=== PATIENT | female | born 1995 | race Caucasian/White ===

== ENCOUNTER 2017-01-27 14:53 | Emergency (ER) | payer OTHER ==
[~2017-01-27] VITALS: Ht 152.4 cm; Wt 61.5 kg
[2017-01-27 15:01] VITALS: Ht 152.4 cm; Wt 61.5 kg
[2017-01-27] MEDS ORDERED: SOD CHLORIDE 0.9% 1,000 ML IV STA (15:44)
[2017-01-27] MEDS ORDERED: METOCLOPRAMIDE 10 MG INJ IV STA (15:44)
[2017-01-27] MEDS ORDERED: FAMOTIDINE 20 MG INJ IV STA (15:44)
[2017-01-27 16:21] LABS: ADD SCAN DIFF NO
[2017-01-27 16:22] LABS: BASOPHILS % 0.3 % (0.0-2.0); EOSINOPHILS % 0.2 % (0.0-7.0); HEMATOCRIT 36.7 % (37.0-47.0); HEMOGLOBIN 12.7 g/dl (12.0-16.0); LYMPHOCYTES # 2.2 10^3/ul (0.8-2.9); LYMPHOCYTES % 18.4 % (18.0-55.0); MEAN CORPUSCULAR HEMOGLOBIN 30.5 pg (29.0-33.0); MEAN CORPUSCULAR HGB CONC 34.6 g/dl (32.0-37.0); MEAN PLATELET VOLUME 9.7 fl (7.4-10.4); MONOCYTE # 0.6 10^3/ul (0.3-0.9); NEUTROPHIL # 9.2 10^3/ul (1.6-7.5); NEUTROPHILS % 75.8 % (30.0-74.0); PLATELET COUNT 241 10^3/UL (140-415); RED BLOOD COUNT 4.17 10^6/ul (4.20-5.40); RED CELL DISTRIBUTION WIDTH 12.8 % (11.5-14.5); WHITE BLOOD COUNT 12.1 10^3/ul (4.8-10.8)
[2017-01-27 16:30] LABS: ADD UMIC YES; URINE BILIRUBIN (Dip) NEGATIVE (NEGATIVE); URINE BLOOD (Dip) NEGATIVE (NEGATIVE); URINE COLOR LT. YELLOW (YELLOW); URINE GLUCOSE (Dip) NEGATIVE (NEGATIVE); URINE KETONES (Dip) NEGATIVE (NEGATIVE); URINE LEUKOCYTE ESTERASE (Dip) NEGATIVE (NEGATIVE); URINE NITRITE (Dip) NEGATIVE (NEGATIVE); URINE TOTAL PROTEIN (Dip) 1+ (NEGATIVE); URINE UROBILINOGEN (Dip) 0.2 E.U./dL (0.1-1.0)
[2017-01-27 16:35] LABS: ALBUMIN 4.6 g/dl (3.3-4.9); ALBUMIN/GLOBULIN RATIO 1.39; BILIRUBIN,INDIRECT 0.5 mg/dl (0-1.1); BILIRUBIN,TOTAL 0.5 mg/dl (0.2-1.3); CALCIUM 9.5 mg/dl (8.4-10.2); CREATININE 0.47 mg/dl (0.44-1.00); POTASSIUM 3.7 mmol/L (3.5-5.1); TOTAL PROTEIN 7.9 g/dl (6.1-8.1)
[2017-01-27 17:14] LABS: SQUAMOUS EPITHELIAL CELL,UR MODERATE; URINE RBCS NONE SEEN /HPF (0)
[2017-01-27] MEDS ORDERED: METO10TA92 PO (18:00)
[2017-01-27] MEDS ORDERED: FAMO40TA52 PO (18:00)
--- NOTE | 2017-01-27 18:03 | ERD ---
ER Documentation Chief Complaint Date/Time DATE: 01/27/17 TIME: 18:02 Chief Complaint VOMITED BLOOD TWICE TODAY,7 WEEKS .DENIES PAIN HPI This 89-year-old female complains of vomiting over the last day. She had some slight bright red blood in the vomitus without clots or gross blood. She denies any diarrhea, fevers, urinary complaints. She is approximately 7 weeks by dates. She denies any foreign travel or sick contacts. ROS All systems reviewed and are negative except as per history of present illness. Medications Home Meds Active Scripts Metoclopramide* (Reglan*) 10 Mg Tablet, 10 MG PO Q6 Y for NAUSEA AND/OR VOMITING , #20 TAB Prov:CARMEN KHALIL MD 01/27/17 Famotidine* (Famotidine*) 40 Mg Tablet, 40 MG PO HS, #30 TAB Prov:CARMEN KHALIL MD 01/27/17 Physical Exam Vitals Vital Signs Date Time Temp Pulse Resp B/P Pulse Ox O2 Delivery O2 Flow Rate FiO2 01/27/17 15:01 98.4 87 18 105/65 98 Physical Exam Const: [] Alert, not appearing per Head: Atraumatic Eyes: Normal Conjunctiva ENT: Normal External Ears, Nose and Mouth. Neck: Full range of motion..~ No meningismus. Resp: Clear to auscultation bilaterally Cardio: Regular rate and rhythm, no murmurs Abd: Soft, minimal epigastric tenderness. No tenderness at McBurney's point no Cano sign., non distended. Normal bowel sounds Skin: No petechiae or rashes Back: No midline or flank tenderness Ext: No cyanosis, or edema Neur: Awake and alert Psych: Normal Mood and Affect Result Diagram: 01/27/17 1606 01/27/17 1606 Results 24 hrs Laboratory Tests Test 01/27/17 15:55 01/27/17 16:06 Urine Color LT. YELLOW Urine Clarity CLEAR Urine pH 8.0 Urine Specific Widen 1.015 Urine Ketones NEGATIVE Urine Nitrite NEGATIVE Urine Bilirubin NEGATIVE Urine Urobilinogen 0.2 E.U./dL Urine Leukocyte Esterase NEGATIVE Urine Microscopic RBC NONE SEEN/HPF Urine Microscopic WBC 0-2/HPF Urine Squamous Epithelial Cells MODERATE Urine Amorphous Urates MANY Urine Hemoglobin NEGATIVE Urine Glucose NEGATIVE% Urine Total Protein 1+ White Blood Count 12.110^3/ul Red Blood Count 4.1710^6/ul Hemoglobin 12.7g/dl Hematocrit 36.7% Mean Corpuscular Volume 88.0fl Mean Corpuscular Hemoglobin 30.5pg Mean Corpuscular Hemoglobin Concent 34.6g/dl Red Cell Distribution Width 12.8% Platelet Count 86117^3/UL Mean Platelet Volume 9.7fl Neutrophils % 75.8% Lymphocytes % 18.4% Monocytes % 5.0% Eosinophils % 0.2% Basophils % 0.3% Nucleated Red Blood Cells % 0.0/100WBC Neutrophils # 9.210^3/ul Lymphocytes # 2.210^3/ul Monocytes # 0.610^3/ul Eosinophils # 0.010^3/ul Basophils # 0.010^3/ul Nucleated Red Blood Cells # 0.010^3/ul Sodium Level 136mmol/L Potassium Level 3.7mmol/L Chloride Level 103mmol/L Carbon Dioxide Level 22mmol/L Anion Gap 15 Blood Urea Nitrogen 6mg/dl Creatinine 0.47mg/dl Glucose Level 87mg/dl Calcium Level 9.5mg/dl Total Bilirubin 0.5mg/dl Direct Bilirubin 0.00mg/dl Indirect Bilirubin 0.5mg/dl Aspartate Amino Transf (AST/SGOT) 26IU/L Alanine Aminotransferase (ALT/SGPT) 41IU/L Alkaline Phosphatase 81IU/L Total Protein 7.9g/dl Albumin 4.6g/dl Globulin 3.30g/dl Albumin/Globulin Ratio 1.39 Lipase 46U/L Current Medications Medications (Trade) Dose Ordered Sig/Padmini Route PRN Reason Start Time Stop Time Status Last Admin Dose Admin Sodium Chloride (NS) 1,000 ml @ 1,000 mls/hr Q1H STAT IV 01/27/17 15:44 01/27/17 16:43 DC 01/27/17 16:12 Metoclopramide HCl (Reglan) 10 mg ONCE STAT IV 01/27/17 15:44 01/27/17 15:46 DC 01/27/17 16:12 Famotidine (Pepcid Iv) 20 mg ONCE STAT IV 01/27/17 15:44 01/27/17 15:46 DC 01/27/17 16:13 Procedures/MDM CBC shows a white blood count 12.1, otherwise normal. CMP and lipase is normal. Urine is negative for leukocytes, blood, glucose. HCG is positive. Peripheral ultrasound shows a week intrauterine without acute abnormalities. Patient felt better after 1 L normal saline IV, Reglan 10 mg IV and Pepcid 20 mg IV. Patient presents with vomiting with possibly some history of bright red vomitus in the with blood no active vomiting. There is no signs or symptoms of anemia, active bleeding. She may have gastritis and will be treated with Reglan and Pepcid at home and close observation. She should return for vomitus by treatment, worsening blood, pain, new or worsening symptoms with primary doctor this week. Signs and symptoms do not suggest appendicitis, obstruction, accompanied to the or additional causes of presenting complaints. Departure Diagnosis: Primary Impression: Vomiting Vomiting type: unspecified Vomiting Intractability: unspecified Nausea presence: unspecified Qualified Code: R11.10 - Vomiting, intractability of vomiting not specified, presence of nausea not specified, unspecified vomiting type Condition: Stable Patient Instructions: Vomiting (6Y-Adult) Additional Instructions: All examinations normal today. We will treat for gastritis and vomiting. Recheck with OB next week or for new or worsening symptoms. CARMEN KHALIL MD Jan 27, 2017 18:03
--- NOTE | 2017-01-27 18:31 | RADRPT ---
PROCEDURE: US OB. CLINICAL INDICATION: Pain. Clinical estimate gestational age is 7 weeks 1 day with estimated lisandra e of delivery 09/14/2017 TECHNIQUE: Transabdominal views of the pelvis are available for review. COMPARISON: No prior studies are available for comparison. FINDINGS: [place]-rump length:1.37 cm, 7 weeks 4 days Mean gestational sac diameter 3.62 cm, 8 weeks 6 days gestational age. heart rate:182 beats per minute Ultrasound estimated gestational age:8 weeks 2 days Estimated date of delivery 09/06/2017. Right ovary is not seen. The left ovary is unremarkable. Color flow and spectral analysis demonstra flavia normal arterial flow in the left ovary. No ovarian or adnexal mass lesion is seen. There is no f ree fluid. IMPRESSION: 1. Single live intrauterine with an estimated gestational age of 8 weeks 2 days based on ultrasound measurements. RPTAT: HJES .Bhupinder Ritter MD, MD Date Time Electronically viewed and signed by .Bhupinder Ritter MD, MD on 01/27/2017 18:30 .S/
[2017-01-27 18:41] VITALS: BP 107/64; PULSE 78; RESP 16
== END 2017-01-27 18:44 | disposition home or self-care (01) ==
LOC: FTE 14:53
DX: O21.9 Vomiting of pregnancy, unspecified (principal); Z3A.08 8 weeks gestation of pregnancy
CPT/HCPCS: 36415; 76801; 80053; 81001; 83690; 85025; 96374; 96375; J2765; J7030; Z7502; Z7610; 81003

== ENCOUNTER 2017-03-04 13:52 | Emergency (ER) | payer SELFPAY ==
[~2017-03-04] VITALS: Wt 60.0 kg
[~2017-03-04 13:52] MED LIST: FAMO40TA52 PO; METO10TA92 PO
== END 2017-03-04 15:21 | disposition left against medical advice (07) ==
LOC: FTE 13:52
DX: Z53.21 Procedure and treatment not carried out due to patient leaving prior to being seen by health care provider (principal)

== ENCOUNTER 2017-05-25 12:28 | Inpatient (IN) | payer OTHER ==
[~2017-05-25] VITALS: Ht 152.4 cm; Wt 68.9 kg
[2017-05-25] MEDS ORDERED: PRENAT PO (12:44)
[2017-05-25 12:45] VITALS: Ht 152.4 cm; Wt 68.9 kg
[2017-05-25 12:46] VITALS: BP 109/61; PULSE 79; RESP 18
[2017-05-25] MEDS ORDERED: LACTATED RINGER'S 1,000 ML IV ONE (14:30)
--- NOTE | 2017-05-25 15:06 | RADRPT ---
PROCEDURE: Limited obstetric ultrasound CLINICAL INDICATION: Labor TECHNIQUE: Multiple transverse and longitudinal grayscale images of the pelvis were obtained maria sabdominally and endovaginally.. COMPARISON: same day FINDINGS: There is a single live intrauterine gestation in a vertex position with a heart rate of 157 bp m. Following up to 1 cm in width is identified at the internal cervical os. The closed portion of the cervix measures up to 2.8 cm in length. RPTAT: AA IMPRESSION: Following up to 1 cm in width is identified at the internal cervical os. The closed portion of the cervix measures up to 2.8 cm in length. These findings were discussed with the nurse taking care of the patient, Lucien Khmary janetessa, over the phon e on 05/25/2017 at 3:05 PM. Physician Enrico Date Time Electronically viewed and signed by Rishi Hsu Physician on 05/25/2017 15:05 /
[2017-05-25 15:12] LABS: BASOPHILS % 0.2 % (0.0-2.0); EOSINOPHILS % 0.3 % (0.0-7.0); HEMATOCRIT 32.4 % (37.0-47.0); HEMOGLOBIN 11.5 g/dl (12.0-16.0); LYMPHOCYTES % 18.2 % (18.0-55.0); MEAN CORPUSCULAR HEMOGLOBIN 31.9 pg (29.0-33.0); MEAN CORPUSCULAR HGB CONC 35.5 g/dl (32.0-37.0); MEAN CORPUSCULAR VOLUME 89.8 fl (72.0-104.0); MEAN PLATELET VOLUME 10.4 fl (7.4-10.4); MONOCYTE # 0.7 10^3/ul (0.3-0.9); MONOCYTES % 6.3 % (0.0-13.0); NEUTROPHILS % 74.1 % (30.0-74.0); PLATELET COUNT 229 10^3/UL (140-415); RED BLOOD COUNT 3.61 10^6/ul (4.20-5.40); RED CELL DISTRIBUTION WIDTH 12.7 % (11.5-14.5); WHITE BLOOD COUNT 10.9 10^3/ul (4.8-10.8)
[2017-05-25 15:29] LABS: ADD UMIC NO; UR ASCORBIC ACID NEGATIVE (NEGATIVE); UR BILIRUBIN (Dip) NEGATIVE (NEGATIVE); UR BLOOD (Dip) NEGATIVE (NEGATIVE); UR CLARITY CLEAR (CLEAR); UR COLOR YELLOW (YELLOW); UR GLUCOSE (Dip) NEGATIVE (NEGATIVE); UR KETONES (Dip) NEGATIVE (NEGATIVE); UR LEUKOCYTE ESTERASE (Dip) NEGATIVE Leu/ul (NEGATIVE); UR NITRITE (Dip) NEGATIVE (NEGATIVE); UR SPECIFIC GRAVITY (Dip) 1.021 (1.003-1.030); UR TOTAL PROTEIN (Dip) NEGATIVE (NEGATIVE); UR UROBILINOGEN (Dip) NEGATIVE (NEGATIVE)
[2017-05-25 15:30] LABS: ALBUMIN 3.6 g/dl (3.3-4.9); ALBUMIN/GLOBULIN RATIO 1.2; BILIRUBIN,INDIRECT 0.3 mg/dl (0-1.1); BILIRUBIN,TOTAL 0.3 mg/dl (0.2-1.3); CALCIUM 9.1 mg/dl (8.4-10.2); CREATININE 0.47 mg/dl (0.44-1.00); POTASSIUM 3.8 mmol/L (3.5-5.1); TOTAL PROTEIN 6.6 g/dl (6.1-8.1)
--- NOTE | 2017-05-25 15:56 | TRIAGE ---
OB Triage Datetime Report Generated by CPN: 05/25/2017 15:56 Datetime: 05/25/2017 15:30 Stage of : OB Triage Maternal Assessment Level of Consciousness: Fully Conscious Labor Evaluation Frequency: 1uc/hr Monitor Mode: External Duration (sec)2399: 30 Quality: Mild Resting Tone [place]: Relaxed Heart Rate FHR Baseline Rate: 135 Monitor Mode: External US Variability: Moderate 6-25 bpm Accelerations: 10X10 Decelerations: AGA Pain Assessment Pain Scale: 0 Pain Goal: 3 Vaginal Exam Membrane Status: Intact Vaginal Bleeding: None Datetime: 05/25/2017 14:30 Stage of : OB Triage Maternal Assessment Level of Consciousness: Fully Conscious Labor Evaluation Frequency: 5uc/hr Monitor Mode: External Duration (sec)2399: 50-80 Quality: Mild Resting Tone [place]: Relaxed Heart Rate FHR Baseline Rate: 135 Monitor Mode: External US Variability: Moderate 6-25 bpm Accelerations: 10X10 Decelerations: AGA Pain Assessment Pain Scale: 0 Pain Goal: 3 Vaginal Exam Membrane Status: Intact Vaginal Bleeding: None Datetime: 05/25/2017 13:30 Stage of : OB Triage Maternal Assessment Level of Consciousness: Fully Conscious Labor Evaluation Frequency: 2uc/hr Monitor Mode: External Duration (sec)2399: 40-60 Quality: Mild Resting Tone [place]: Relaxed Heart Rate FHR Baseline Rate: 140 Monitor Mode: External US Variability: Moderate 6-25 bpm Accelerations: 10X10 (Annotations: AGA) Decelerations: AGA Pain Assessment Pain Scale: 0 Pain Goal: 3 Vaginal Exam Membrane Status: Intact Vaginal Bleeding: None Datetime: 05/25/2017 12:42 Assessment Type: Triage Maternal Assessment Level of Consciousness: Fully Conscious DTR's/Clonus: DTRs 2+; No Clonus Headache: Denies Blurred Vision: No Respiratory Effort: Unlabored; Regular Rhythm; Equal Expansion Breath Sounds, Left: Clear and Equal Breath Sounds, Right: Clear and Equal Nausea/Vomiting: Denies RUQ Epigastric Pain: Denies Lower Extremities Edema: None Degree: None Upper Extremities Edema: None Degree: None Facial Edema: None Fall Risk Assessment History of Falling: (0) No Secondary Diagnosis: (0) No Ambulatory Aid: (0) Bedrest/Nurse Assist IV Therapy: (0) No Gait: (0) Normal/Bedrest/Immobile Mental Status: (0) Oriented to Own Ability Fall Score: 0 Fall Risk Score Definition: No Risk: No action required Datetime: 05/25/2017 12:41 Time of Arrival: 05/25/2017 12:28 EGA: 25.3 Arrived By: Ambulatory Arrived From: Home Chief Complaint: pt here c/o HEMATEMESIS Movement: Present Rupture of Membranes: Denies Vaginal Bleeding: None Vaginal Discharge: Denies Recent Sexual Intercouse: Denies Abdominal Trauma: Not Applicable Patient Complaints: None Time Provider Notified: 05/25/2017 14:15 Provider Notified: DELSHAD Initial Plan: CVL/CBC/CMP/AMYLASE/LIPASE/IV HYDRATION/UA Datetime: 05/25/2017 12:39 Monitor Mode: External Monitor Mode: External US
[2017-05-25] MEDS: LACTATED RINGER'S 1,000 ML IV SCH (17:16)
[2017-05-25] MEDS: BETAMET NA PHOS/AC(6 MG/ML) 5ML INJ IM SCH (17:17)
[2017-05-25] MEDS: PRENATAL VITAMIN PO SCH (17:23)
[2017-05-25] MEDS: NIFEdipine 10 MG CAP PO SCH (17:24)
[2017-05-25] MEDS ORDERED: ONDANSETRON 4 MG INJ IV PRN (17:30)
[2017-05-25] MEDS: FAMOTIDINE 20 MG TAB PO SCH (21:03)
[2017-05-26] MEDS: NIFEdipine 10 MG CAP PO SCH ×5 (00:02→23:57)
[2017-05-26] MEDS: LACTATED RINGER'S 1,000 ML IV SCH ×4 (01:18→23:56)
[2017-05-26] MEDS: PRENATAL VITAMIN PO SCH (09:05)
[2017-05-26] MEDS: BETAMET NA PHOS/AC(6 MG/ML) 5ML INJ IM SCH (17:26)
--- NOTE | 2017-05-26 20:42 | QN ---
Documentation Comment No complaint Afebrile VSS Abdomen soft Strip Appropriate for GA Continue with present care. HARSHAD GARNER MD May 26, 2017 20:42
[2017-05-26] MEDS ORDERED: SENNA TAB PO ONE (21:00)
[2017-05-26] MEDS: FAMOTIDINE 20 MG TAB PO SCH (21:04)
--- NOTE | 2017-05-27 03:24 | HP ---
DATE OF ADMISSION: 05/25/2017 HISTORY OF PRESENT ILLNESS: A 22-year-old female, 1, para 0, estimated date of delivery 09/04/2017, at 25 weeks' gestation who presented with complaint of nausea and vomiting. The patient denied vaginal bleeding or rupture of membranes. The patient denies abdominal pain. PAST MEDICAL HISTORY: Unremarkable. PAST SURGICAL HISTORY: Unremarkable. ALLERGIES: SULFA. FAMILY HISTORY: Diabetes. PHYSICAL EXAMINATION: VITAL SIGNS: On examination, the patient is afebrile. Vital signs are stable. HEENT: Within normal limits. NECK: Within normal limits. CHEST: Within normal limits. ABDOMEN: Soft, nontender, and gravid. EXTREMITIES: Within normal limits. NEUROLOGIC: Within normal limits. DATA: On external monitoring, contractions are noted. Obstetrical ultrasound gave cervical length of 2.8 cm. IMPRESSION: 1. at 25 weeks. 2. Nausea and vomiting. 3. Threatened labor. PLAN: 1. Admit. 2. IV hydration. 3. Intramuscular betamethasone for lung maturity. 4. Oral nifedipine for tocolysis. 5. Perinatology consult. Dictated By: Girish Bravo MD /moira/catherine /Document#: [id number]
[2017-05-27] MEDS: NIFEdipine 10 MG CAP PO SCH ×3 (06:00→18:03)
[2017-05-27] MEDS: LACTATED RINGER'S 1,000 ML IV SCH ×2 (08:11→16:01)
[2017-05-27] MEDS: PRENATAL VITAMIN PO SCH (09:56)
--- NOTE | 2017-05-27 11:44 | CONS ---
DATE OF ADMISSION: 05/25/2017 DATE OF CONSULTATION: 05/27/2017 HISTORY OF PRESENT ILLNESS: The patient is a 22-year-old G1 at 25 weeks and 4 days who was admitted 2 days ago with labor. Her cervical length was 2.8 mm, and she was placed on Procardia 10 mg every 6 hours. She has received betamethasone, last dose was yesterday evening. Currently she does not have any contractions. PAST MEDICAL HISTORY: Negative. ALLERGIES: NO KNOWN DRUG ALLERGIES. REVIEW OF SYSTEMS: Negative except for as mentioned above. PHYSICAL EXAMINATION: Deferred. VITAL SIGNS: Stable. HEART TONES: Reassuring for this gestational age. CONTRACTIONS: None. IMPRESSION: Intrauterine at 25 weeks and 4 days with labor. On Procardia 10 mg every 6 hours status post betamethasone x2. Patient is comfortable without any contractions. RECOMMENDATION: Is cervical exam is unchanged, patient can be discharged home on modified bedrest and prescheduled for cervical length in 2 weeks. If there has been any UA or urine culture ordered, please check prior to discharge. Dictated By: Yari Dove MD /moira/skylar /Document#: [id number]
--- NOTE | 2017-05-27 16:58 | RADRPT ---
PROCEDURE: CERVICAL LENGTH ULTRASOUND CLINICAL INDICATION: Short cervix. TECHNIQUE: Trans-vaginal imaging of the cervical canal was performed utilizing berman-scale imaging. Sagittal and transverse images were obtained. Trans-abdominal images were also obtained. The martina ges were reviewed on a PACS workstation. COMPARISON: 05/25/2017. FINDINGS: There is a single live intrauterine . heart rate is 141 beats per minute. Position is breech and placenta is anterior grade 1. There is no placenta previa. The cervix is closed with a length of 3.3 cm. IMPRESSION: 1. Cervical length is 3.3 cm. 2. Position is breech. RPTAT: QQ .Tru Jean MD, Date Time Electronically viewed and signed by .Tru Jean MD, on 05/27/2017 16:57 .R/
--- NOTE | 2017-06-09 20:15 | DS ---
Date/Time of Note Date/Time of Note DATE: 06/09/17 TIME: 20:14 Obstetrical Discharge Record Final Diagnosis Final Diagnosis: not delivered Other Final Diagnosis Threatened labor Complications Labor, Other (short cervix) Tocolytics: Other (nifedipine) Condition on Discharge Physical Assessment Voiding: Yes Bowel Movement: Yes Calf Tenderness: No Patient Condition: Stable HARSHAD GARNER MD Jun 09, 2017 20:15
== END 2017-05-27 20:35 | disposition home or self-care (01) | DRG 780 ==
LOC: OBT 12:28 → L-D 12:30 → OBG 15:45 → OBT 15:45
PROVIDERS: ADMIT Obstetrics & Gynecology; ATTEND Obstetrics & Gynecology
DX: O47.02 False labor before 37 completed weeks of gestation, second trimester (principal); O20.0 Threatened abortion; Z3A.25 25 weeks gestation of pregnancy
CPT/HCPCS: 36415; 76817; 80053; 81003; 82150; 83690; 85025; 96360; G0463; J0702; J7120

== ENCOUNTER 2018-05-06 08:54 | Emergency (ER) | END 2018-05-06 10:35 | disposition home or self-care (01) ==

== ENCOUNTER 2018-05-13 08:04 | Day surgery (SDC) | END 2018-05-13 13:20 | disposition home or self-care (01) ==

== ENCOUNTER 2018-05-18 20:55 | Emergency (ER) | END 2018-05-18 23:59 | disposition home or self-care (01) ==